=== PATIENT | female | born 1960 | race Caucasian/White ===

== ENCOUNTER 2023-09-14 07:37 | Day surgery (SDC) | payer OTHER ==
[~2023-09-14] VITALS: Ht 154.9 cm; Wt 73.5 kg
[2023-09-14] MEDS ORDERED: MEPERIDINE 100 MG INJ. 100 MG/ML VIAL ONE (11:06)
[2023-09-14] MEDS ORDERED: MIDAZOLAM HCL 5 MG/5 ML VIAL ONE (11:06)
[2023-09-14] MEDS ORDERED: ONDANSETRON HCL 4 MG/2 ML VIAL ONE (13:14)
[2023-09-14] MEDS: ONDANSETRON HCL 4 MG/2 ML VIAL IVP ONE (13:15)
[2023-09-14 14:24] VITALS: O2SAT 96
[2023-09-14] MEDS ORDERED: ONDANSETRON HCL 4 MG/2 ML VIAL IVP ONE (15:00)
[2023-09-14 18:53] VITALS: BP_SYST 114; PULSE 54; RESP 17
== END 2023-09-14 14:53 | disposition home or self-care (01) ==
LOC: SDS 07:37 → SMU 07:52 → EDBD 10:45 → SDS 14:24
PROVIDERS: ATTEND Student in an Organized Health Care Education/Training Program
DX: K59.00 Constipation, unspecified (principal); K57.30 Diverticulosis of large intestine without perforation or abscess without bleeding; K64.8 Other hemorrhoids; K64.4 Residual hemorrhoidal skin tags; E78.5 Hyperlipidemia, unspecified; E03.9 Hypothyroidism, unspecified; M19.90 Unspecified osteoarthritis, unspecified site; Z79.890 Hormone replacement therapy; Z79.899 Other long term (current) drug therapy; Z88.0 Allergy status to penicillin; Z80.0 Family history of malignant neoplasm of digestive organs
CPT/HCPCS: 45385; 88305; 99152; 99153; G0378; J2250; J2405; J2175